=== PATIENT | male | born 1970 | race Caucasian/White ===

== ENCOUNTER 2021-05-21 22:29 | Emergency (ER) | payer BC ==
[~2021-05-21] VITALS: Ht 177.8 cm; Wt 86.4 kg
[2021-05-22 00:30] VITALS: BP 115/73; PULSE 92; TEMP 98.1
== END 2021-05-22 00:30 | disposition home or self-care (01) ==
LOC: COL.ER 22:29
DX: S09.90XA Unspecified injury of head, initial encounter (principal); S01.81XA Laceration without foreign body of other part of head, initial encounter; F10.129 Alcohol abuse with intoxication, unspecified; W19.XXXA Unspecified fall, initial encounter; W22.8XXA Striking against or struck by other objects, initial encounter; Y92.838 Other recreation area as the place of occurrence of the external cause